=== PATIENT | male | born 1955 | race Caucasian/White ===

== ENCOUNTER 2025-08-06 03:16 | Inpatient (IN) | payer OTHER ==
[2025-08-06] VITALS (12 sets, daily range): BP systolic 111–145; BP diastolic 63–90; PULSE 87–110; RESP 15–26; TEMP 97.6–99.6; O2SAT 93–99
[~2025-08-06] VITALS: Ht 175.3 cm; Wt 98.7 kg
--- NOTE | 2025-08-06 03:43 | ED.PDOC ---
History of Present Illness HPI Comments 69 year old male presents to ER with complaints of flu-like symptoms x 4 days. Patient presents VIA EMS, reporting that she has been experiencing dry cough, congestion and body aches x 4 days.He rates his current pain a 7/10 and notes he's been taking Tylenol for his symptoms without relief. Patient presents to ER febrile at 103.5 F, present in wheelchair, alert and oriented x4, in moderate distress and reports + exposure to sick contacts at home. Patient also reports hx of "chronic shortness of breath x 1 year" that he states got worse x 1 day and was hypoxic at 90% on RA on EMS arrival with improvement to 95% on 3L NC. Denies chest pain, hemoptysis, dizziness, n/v, neck pain, abdominal pain, changes in urination/bm or any further symptoms/complaints Chief Complaint: Flu like Time Seen by MD: 03:26 Primary Care Provider: UNKNOWN Reviewed Notes: Nurses Notes, Medications, Allergies Information Source: Patient Mode of Arrival: Wheelchair Past Medical History PAST MEDICAL HISTORY: DM, HTN, PE Surgical History: Denies all surgeries Family History Family History: Unknown Social History Smoker: Non-Smoker Alcohol: Denies ETOH Use Drugs: Denies Drug Use Lives In: Home Constitutional: See HPI EENTM: See HPI Respiratory: See HPI Cardiovascular: No Symptoms Reported Gastrointestinal: No Symptoms Reported Genitourinary: No Symptoms Reported Neurological: No Symptoms Reported Musculoskeletal: No Symptoms Reported Integumentary: No Symptoms Reported Allergic/Immunocompromised: others (Denies) Hematologic/Lymphatic: No Symptoms Reported Endocrine: No Symptoms Reported Psychiatric: No symptoms Reported Physical Exam General Appearance: Moderate Distress, Obese HEENT: Normal ENT Inspection, PERRL/EOMI, Pharynx Normal, TMs Normal Neck: Full Range of Motion, Non-Tender, Normal Respiratory: Chest Non-Tender, Decreased Breath Sounds (Noted to bilateral upper lung ruiz), Lungs Clear, Respiratory Distress, Other (Patient on 3L NC) Cardiovascular: No Murmur, No Gallop, Tachycardia Breast Exam: Deferred Gastrointestinal: Non Tender, No Pulsatile Mass, Soft Genitalia: Deferred Pelvic: Deferred Rectal: Deferred Extremities: Normal capillary refill, Normal range of motion Neurologic: Alert, No Motor Deficits, Normal Affect, Normal Mood, No Sensory Deficits Cerebellar Function: Normal Reflexes: Normal Skin: Dry, Normal Color, Warm Peripheral Pulses: 3+ carotid (R), 3+ carotid (L), 3+ Radial (R), 3+ Radial (L), 3+ Brachial (R), 3+ Brachial (L) Lymphatic: No Adenopathy Was a procedure done? Was a procedure done?: No Sedation Sedation?: No EKG EKG : Pulse Rate (adult): 109 Cardiac Rhythm: ST Fever Differential Dx Differential Diagnosis: Pneumonia, Respiratory Failure, Sepsis, Pharyngitis, Other (COVID-19, [place], [place]) X-Ray, Labs, Meds, VS Vital Signs Date Time Temp Pulse Resp B/P (MAP) Pulse Ox O2 Delivery O2 Flow Rate FiO2 08/06/25 06:30 110 23 136/90 (105) 93 08/06/25 05:51 109 08/06/25 05:38 99.6 08/06/25 05:10 112 26 155/89 (111) 93 08/06/25 04:38 103.5 08/06/25 04:33 109 08/06/25 04:15 103.5 111 26 153/90 (111) 95 103.5 08/06/25 04:15 108 26 93 Nasal Cannula* 3 32 08/06/25 04:15 108 08/06/25 03:22 103.5 111 26 145/72 95 103.5 Lab Test 08/06/25 06:11 08/06/25 04:17 08/06/25 04:16 08/06/25 04:10 Range/Units Lactic Acid Level 1.2 2.4 *H 0.4-2.0 mmol/L Troponin I High Sensitivity 47 50 </=54 ng/L Influenza Type A Antigen Negative Negative Influenza Type B Antigen Negative Negative SARS-CoV-2 Antigen (Rapid) Negative NEGATIVE White Blood Count 8.1 4.4-10.8 10^3/uL Red Blood Count 6.15 H 4.5-5.90 10^6/uL Hemoglobin 18.3 H 13.5-17.5 g/dL Hematocrit 54.3 H 41.0-53.0 % Mean Corpuscular Volume 88.2 80.0-100.0 fL Mean Corpuscular Hemoglobin 29.8 28.0-32.0 pg Mean Corpuscular Hemoglobin Concent 33.7 32.0-36.0 g/dL Red Cell Distribution Width 13.8 11.8-14.3 % Platelet Count 200 140-450 10^3/uL Mean Platelet Volume 9.2 6.9-10.8 fL Neutrophils (%) (Auto) 72.6 37.0-80.0 % Lymphocytes (%) (Auto) 7.9 L 10.0-50.0 % Monocytes (%) (Auto) 18.1 H 0.0-12.0 % Eosinophils (%) (Auto) 1.1 0.0-7.0 % Basophils (%) (Auto) 0.3 0.0-2.0 % Neutrophils # (Auto) 5.9 1.6-8.6 10 ^3/uL Lymphocytes # (Auto) 0.6 0.4-5.4 10 ^3/uL Monocytes # (Auto) 1.5 H 0-1.3 10 ^3/uL Eosinophils # (Auto) 0.1 0-0.8 10 ^3/uL Basophils # (Auto) 0 0-0.2 10 ^3/uL Nucleated Red Blood Cells 0.3 % D-Dimer, Quantitative 1.07 H 0.0-0.49 mg/L FEU Sodium Level 139 136-145 mmol/L Potassium Level 5.1 3.5-5.1 mmol/L Chloride Level 104 98-107 mmol/L Carbon Dioxide Level 23 20-31 mmol/L Anion Gap 12 5-15 Blood Urea Nitrogen 11 9-23 mg/dL Creatinine 1.18 0.700-1.30 mg/dL Glomerular Filtration Rate Calc 68 >90 mL/min BUN/Creatinine Ratio 9.3 L 10.0-20.0 Serum Glucose 166 H 74-106 mg/dL Calcium Level 9.5 8.7-10.4 mg/dL Total Bilirubin 1.0 0.2-1.0 mg/dL Aspartate Amino Transferase (AST) 71 H 13-40 U/L Alanine Aminotransferase (ALT) 42 H 7-40 U/L Alkaline Phosphatase 67 46-116 U/L B-Type Natriuretic Peptide 194.02 0-100 pg/mL Total Protein 9.0 H 5.7-8.2 g/dL Albumin 5.1 H 3.2-4.8 g/dL Current Medications Medications (Trade) Dose Ordered Sig/Ruma Route Start Time Stop Time Status Last Admin Acetaminophen (Tylenol Tablet) 650 mg ONCE ONCE PO 08/06/25 03:30 08/06/25 03:31 DC 08/06/25 04:38 Sodium Chloride 1,000 ml @ 1,000 mls/hr Q1H ONCE IV 08/06/25 03:45 08/06/25 04:44 DC 08/06/25 04:38 Methylprednisolone Sodium Succinate (Solu Medrol) 125 mg ONCE ONCE IV 08/06/25 04:00 08/06/25 04:01 DC 08/06/25 04:38 Ceftriaxone Sodium 50 ml @ 100 mls/hr ONCE ONCE IV 08/06/25 04:00 08/06/25 04:29 DC 08/06/25 04:37 Sodium Chloride 1,000 ml @ 1,000 mls/hr Q1H ONCE IV 08/06/25 05:00 08/06/25 05:59 DC 08/06/25 05:17 Enoxaparin Sodium (Lovenox) 100 mg ONCE ONCE SC 08/06/25 05:45 08/06/25 05:46 DC 08/06/25 06:00 PATIENT: RASHI LEGGETT ACCT: [id number] UNIT: [id number] : 1955 LOC: ER ROOM / BED: / AGE / SEX: 69 / M ADM STATUS: REG ER SERVICE 6 ORDERING PHYSICIAN: ANNITA CHANCE PROCEDURE(s): CXR1 - CHEST XRAY 1 VIEW REASON: cough ORDER NUMBER(s): [id number], ACCESSION NUMBER(s): [id number] CHEST RADIOGRAPH Indication: cough Technique: Single frontal view of the chest was obtained COMPARISON: None FINDINGS: Lines and Tubes: None Lungs: Clear Pleura: No effusion. No pneumothorax. Cardiomediastinal contours: Unremarkable Bones: Unremarkable IMPRESSION: 1. No acute disease. ATED BY: NAPOLEON LYONS MD DICTATED DATE/TIME: 08/06/25445 SIGNED BY: NAPOLEON LYONS MD SIGNED DATE/TIME: 08/06/25445 CC: PATIENT: RASHI LEGGETT ACCT: [id number] UNIT: [id number] : 1955 LOC: ER ROOM / BED: / AGE / SEX: 69 / M ADM STATUS: REG ER SERVICE 6 ORDERING PHYSICIAN: ANNITA CHANCE PROCEDURE(s): CTACH - CT ANGIO CHEST CONTRAST REASON: shortness of breath, elevated d-dimer r/o PE ORDER NUMBER(s): [id number], ACCESSION NUMBER(s): [id number] CTA Chest with intravenous contrast INDICATION: Shortness of breath, elevated d-dimer r/o PE. COMPARISON: None TECHNIQUE: Multidetector spiral CTA of the chest was performed of the chest with 100 cc of omnipaque 300 intravenous contrast. PULMONARY ANGIOGRAPHY PROTOCOL was utilized using a bolus-tracking technique centered on the main pulmonary artery. Coronal and sagittal multiplanar and MIP reformats were performed. Radiation Dose : 1. Chest: CTDI volume is 25.92 mGy. Dose-length product is 1000.7 mGy*cm The dose indicators for CT are the volume Computed Tomography (CT) Dose Index (CTDIvol) and the Dose Length Product (DLP), and are measured in units of mGy and mGy-cm, respectively. These indicators are not patient dose, but values generated from the CT scanner acquisition factors. The report includes radiation exposure data for exposures received during this examination. FINDINGS: Pulmonary artery: There is a filling defect in the left pulmonary artery. Lower neck: Unremarkable thyroid. Lungs: No focal pulmonary consolidation or pulmonary nodule. Central airways: Patent. Pleura: No pneumothorax. No pleural effusions. Heart/Vascular Structures: The heart is normal in size. RV to LV ratio measures 1.1 No pericardial effusion. Thoracic aorta is normal in caliber. No aneurysm or dissection. Lymph Nodes: No mediastinal or hilar lymphadenopathy. Esophagus:Grossly unremarkable. Musculoskeletal: Unremarkable. Body wall: Unremarkable. Upper abdomen: Unremarkable. IMPRESSION: 1. Left lobar pulmonary embolism. Elevated RV to LV ratio concerning for right heart strain. ATED BY: VILMA CREWS MD DICTATED DATE/TIME: 08/06/25526 SIGNED BY: VILMA CREWS MD SIGNED DATE/TIME: 08/06/25526 CC: CBC ordered-hemoglobin 18.3 CMP ordered without any significant abnormalities D-dimer 1.07 reviewed Lactic acid reviewed - 2.4 Troponin reviewed- 50 BNP ordered PT/PTT ordered EKG reviewed Chest x-ray reviewed CT chest angio reviewed Swabs reviewed - negative Hep-Lock IV ordered NS 1 L IV ordered Rocephin g IV ordered Solu-Medrol 125 mg IV ordered Tylenol 650 mg p.o. ordered Patient started on Lovenox 100 mg SC Patient hemodynamically stable, denying any chest pain and saturating 95% on 3L NC Case discussed with Dr. Schneider who's agreeable with current plan of care/management Patient admitted to hospitalist for left lobar PE with possible right heart strain and need for continued anticoagulation/further evaluation Images Reviewed?: Images reviewed and evaluated by me Time of 1ST Reevaluation: 04:05 Reevaluation 1ST: N/A Patient Education/Counseling: Diagnosis, Treatment, Prognosis, Need For Follow Up Family Education/Counseling: No Family Present SEPSIS Sepsis Screen Date sepsis recognized/suspect: Aug 06, 2025 Time Sepsis recognized/suspect: 326 Recent Procedure: No On Antibiotic Therapy: No Respiratory Rate >20: Yes Heart Rate >90: Yes Temp<36 C (96.8 F) or >38.3 C: Yes SBP <90 or MAP <65 mmHG: No New Acute Mental Status Change: No Is the patient on CPAP, BIPAP,: No Physician Orders Blood Culture (08/06/25 03:32) Finger Cobbler (08/06/25 ) Blood Pressure (08/06/25 ) Pulse Oximetry (08/06/25 ) Chest Xray 1 View (08/06/25 03:37) Heplock Iv (08/06/25 ) Ct Angio Chest Contrast (08/06/25 04:47) Vital Signs Date Time Temp Pulse Resp B/P (MAP) Pulse Ox O2 Delivery O2 Flow Rate FiO2 08/06/25 06:30 110 23 136/90 (105) 93 08/06/25 05:51 109 08/06/25 05:38 99.6 08/06/25 05:10 112 26 155/89 (111) 93 08/06/25 04:38 103.5 08/06/25 04:33 109 08/06/25 04:15 103.5 111 26 153/90 (111) 95 103.5 08/06/25 04:15 108 26 93 Nasal Cannula* 3 32 08/06/25 04:15 108 08/06/25 03:22 103.5 111 26 145/72 95 103.5 Laboratory Tests Test 08/06/25 04:10 08/06/25 06:11 Lactic Acid Level 2.4 mmol/L (0.4-2.0) *H 1.2 mmol/L (0.4-2.0) White Blood Count 8.1 10^3/uL (4.4-10.8) Departure 1 Departure Time of Disposition: 04:54 Impression: Primary Impression: Pulmonary embolism Qualified Codes: I26.99 - Other pulmonary embolism without acute cor pulmonale Additional Impressions: Respiratory distress Lactic acidosis Elevated d-dimer Disposition: ADMITTED INPATIENT Condition: Critical Critical Care Note Critical Care Time?: No Stability Stability form required: No Heart Score Heart Score: Heart Score Response (Comments) Value History N/A 0 EKG N/A 0 Age N/A 0 Risk Factors N/A 0 Troponin N/A 0 Total 0 ANNITA CHANCE Aug 06, 2025 03:43
[2025-08-06 04:32] LABS: Hematocrit 54.3 % (41.0-53.0); Hemoglobin 18.3 g/dL (13.5-17.5); Mean Corpuscular Hemoglobin 29.8 pg (28.0-32.0); Mean Corpuscular Volume 88.2 fL (80.0-100.0); Nucleated Red Blood Cells % 0.3 %
[2025-08-06] MEDS: ACETAMINOPHEN 325 MG TAB PO ONE (04:38)
[2025-08-06] MEDS: methylPREDNISolone SOD SUCC 125 MG/2 ML VL IV ONE (04:38)
[2025-08-06] MEDS: SODIUM CHLORIDE 0.9% 1,000 ML IV ONE ×2 (04:38→05:17)
--- NOTE | 2025-08-06 04:48 | DVH ---
CHEST RADIOGRAPH Indication: cough Technique: Single frontal view of the chest was obtained COMPARISON: None FINDINGS: Lines and Tubes: None Lungs: Clear Pleura: No effusion. No pneumothorax. Cardiomediastinal contours: Unremarkable Bones: Unremarkable IMPRESSION: 1. No acute disease.
[2025-08-06 04:49] LABS: Alkaline Phosphatase 67 U/L (46-116); Anion Gap 12 (5-15); BUN/Creatinine Ratio 9.3 (10.0-20.0); Bilirubin, Total 1.0 mg/dL (0.2-1.0); Blood Urea Nitrogen 11 mg/dL (9-23); Calcium 9.5 mg/dL (8.7-10.4); Carbon Dioxide 23 mmol/L (20-31); Chloride 104 mmol/L (98-107); Sodium 139 mmol/L (136-145)
[2025-08-06 04:50] LABS: Lactic Acid w/Reflex 2.4 mmol/L (0.4-2.0)
[2025-08-06 04:51] LABS: Alanine Aminotransferase 42 U/L (7-40); Albumin 5.1 g/dL (3.2-4.8); Glucose 166 mg/dL (74-106); Potassium 5.1 mmol/L (3.5-5.1); Total Protein 9.0 g/dL (5.7-8.2)
[2025-08-06] MEDS: IOHEXOL 300 MG/ML 100ML BOTTLE IJ ONE (05:11)
[2025-08-06 05:13] LABS: COVID19 ANTIGEN SOFIA FIA NEGATIVE (NEGATIVE)
--- NOTE | 2025-08-06 05:25 | ECG ---
[facility] Test Date: 2025-08-06 Test Time: 04:33:43 Pat Name: RASHI LEGGETT Department: [facility] ED Patient ID: [facility]-[id number] Room: Gender: M Terminal Make Up Operator: TOM : 1955 Requested By: ANNITA CHANCE Order Number: [id number] Reading MD: Measurements Intervals [place] Rate: 109 P: -4 TX: 219 QRS: 173 QRSD: 92 T: -32 QT: 325 QTc: 438 Interpretive Statements Sinus tachycardia Prolonged TX interval Probable RVH w/ secondary repol abnormality Borderline ST elevation, lateral leads Please click the below link to view image of tracing.
--- NOTE | 2025-08-06 05:30 | DVH ---
CTA Chest with intravenous contrast INDICATION: Shortness of breath, elevated d-dimer r/o PE. COMPARISON: None TECHNIQUE: Multidetector spiral CTA of the chest was performed of the chest with 100 cc of omnipaque 300 intravenous contrast. PULMONARY ANGIOGRAPHY PROTOCOL was utilized using a bolus-tracking techniqu e centered on the main pulmonary artery. Coronal and sagittal multiplanar and MIP reformats were perf ormed. Radiation Dose : 1. Chest: CTDI volume is 25.92 mGy. Dose-length product is 1000.7 mGy*cm The dose indicators for CT are the volume Computed Tomography (CT) Dose Index (CTDIvol) and the Dose Length Product (DLP), and are measured in units of mGy and mGy-cm, respectively. These indicators are not patient dose, but values generated from the CT scanner acquisition factors. The report includes radiation exposure data for exposures received during this examination. FINDINGS: Pulmonary artery: There is a filling defect in the left pulmonary artery. Lower neck: Unremarkable thyroid. Lungs: No focal pulmonary consolidation or pulmonary nodule. Central airways: Patent. Pleura: No pneumothorax. No pleural effusions. Heart/Vascular Structures: The heart is normal in size. RV to LV ratio measures 1.1 No pericardial ef fusion. Thoracic aorta is normal in caliber. No aneurysm or dissection. Lymph Nodes: No mediastinal or hilar lymphadenopathy. Esophagus:Grossly unremarkable. Musculoskeletal: Unremarkable. Body wall: Unremarkable. Upper abdomen: Unremarkable. IMPRESSION: 1. Left lobar pulmonary embolism. Elevated RV to LV ratio concerning for right heart strain.
[2025-08-06] MEDS: ENOXAPARIN SOD 100 MG/1 ML SYRINGE SC ONE (06:00)
[2025-08-06] MEDS ORDERED: NITROGLYCERIN 0.4 MG SL TAB SL PRN (07:45)
[2025-08-06] MEDS ORDERED: ACETAMINOPHEN 325 MG TAB PO PRN (07:45)
[2025-08-06] MEDS ORDERED: HYDROcodone-ACET 5/325MG TAB PO PRN (07:45)
[2025-08-06] MEDS ORDERED: MORPHINE SULFATE INJ 2 MG/ml SYRG IV PRN (07:45)
[2025-08-06] MEDS ORDERED: ONDANSETRON HCL 4 MG/2 ML VIAL IV PRN (07:45)
[2025-08-06] MEDS ORDERED: DOCUSATE SOD 100 MG CAP PO PRN (07:45)
[2025-08-06] MEDS ORDERED: LISI-275 PO (07:49)
[2025-08-06] MEDS ORDERED: METF-370 PO (07:49)
[2025-08-06] MEDS ORDERED: INSLANTI SC (07:49)
[2025-08-06] MEDS ORDERED: DEXTROSE (50%) 50ML SYRG IV PRN (08:00)
[2025-08-06 08:30] LABS: INR 1.3 (0.9-1.15); Partial Thromboplastin Time 32.6 SEC (24.5-34.5); Prothrombin Time 13.4 sec (9.3-11.8)
--- NOTE | 2025-08-06 08:37 | DVHHP2 ---
History of Present Illness Reason for Visit: Shortness of breath History of Present Illness Rell Ortega is a 69-year-old male with past medical history of hypertension, diabetes, and hyperlipidemia who came to the hospital for shortness of breath. Patient states he has been experiencing shortness of breath for about 1 year. He sates over the weekend himself and his girlfriend became sick and his shortness of breath worsened prompting him to come to the hospital. Cardiovascular: HTN, hyperipidemia Endocrine: Diabetes Past Surgical History: None Smoke: No ALCOHOL: none Drugs: None Lives: with Family Domestic Violence: Neg Review of Systems Constitutional: No: Fever, Chills, Sweats, Weakness, Malaise, Other Eyes: No: Pain, Vision change, Conjunctivae inflammation, Eyelid inflammation, Other, Redness ENT: No: Ear pain, Ear discharge, Nose pain, Nose discharge, Nose congestion, Mouth pain, Mouth swelling, Throat pain, Throat swelling, Other Respiratory: Shortness of breath, SOB with excertion; No: Cough, Dry, Wheezing, Hemoptysis, Pleuritic Pain, Sputum, Wheezing, Other Cardiovascular: No: Chest Pain, Palpitations, Orthopnea, Paroxysmal Noc. Dysp irma, Edema, Lt Headedness, Other Gastrointestinal: No: Nausea, Vomiting, Abdominal Pain, Diarrhea, Constipation, Melena, Hematochezia, Other Genitourinary: No Dysuria, No Frequency, No Incontinence, No Hematuria, No Retention, No Other Musculoskeletal: No: other, neck pain, shoulder pain, arm pain, back pain, hand pain, leg pain, foot pain Skin: No: Rash, Lesions, Jaundice, Bruising, Other Neurological: No: Weakness, Numbness, Incoordination, Change in speech, Confusion, Seizures, Other Allergies: Coded Allergies: Penicillins (Verified Allergy, Severe, RASH, 09/10/15) Medications Current Medications Medications Dose Ordered Sig/Ruma Route Start Time Stop Time Status Last Admin Dose Admin Acetaminophen/ Hydrocodone Bitart 1 tab Q4HP PRN PO 08/06/25 07:45 UNV Ondansetron HCl 4 mg Q4HP PRN IV 08/06/25 07:45 UNV Docusate Sodium 100 mg BIDPRN PRN PO 08/06/25 07:45 UNV Acetaminophen 650 mg Q6HP PRN PO 08/06/25 07:45 UNV Nitroglycerin 0.4 mg Q5MINP PRN SL 08/06/25 07:45 UNV Morphine Sulfate 2 mg Q30M PRN IV 08/06/25 07:45 UNV Exam Vital Signs Vital Signs Date Time Temp Pulse Resp B/P (MAP) Pulse Ox O2 Delivery O2 Flow Rate FiO2 08/06/25 06:30 110 23 136/90 (105) 93 08/06/25 05:38 99.6 08/06/25 04:15 Nasal Cannula* 3 32 General Appearance: Alert, Oriented X3, Cooperative, moderate distress HEENT: Atraumatic, PERRLA Respiratory: Other (diminished breath sounds) Cardiovascular: Normal S1, Normal S2, Other (ST) Abdominal: Normal bowel sounds, Soft Extremities: No clubbing, No cyanosis, No edema, Normal pulses Skin: No rashes, No breakdown, No significant lesion Neuro: Normal gait, Normal speech, Strength at 5/5 X4 ext, Normal tone, Sensation intact Psych/Mental Status: Mental status NL, Mood NL Labs/Xrays Labs Test 08/06/25 06:11 08/06/25 04:17 08/06/25 04:16 08/06/25 04:10 Range/Units Lactic Acid Level 1.2 0.4-2.0 mmol/L Troponin I High Sensitivity 47 </=54 ng/L Influenza Type A Antigen Negative Negative Influenza Type B Antigen Negative Negative SARS-CoV-2 Antigen (Rapid) Negative NEGATIVE White Blood Count 8.1 4.4-10.8 10^3/uL Red Blood Count 6.15 H 4.5-5.90 10^6/uL Hemoglobin 18.3 H 13.5-17.5 g/dL Hematocrit 54.3 H 41.0-53.0 % Mean Corpuscular Volume 88.2 80.0-100.0 fL Mean Corpuscular Hemoglobin 29.8 28.0-32.0 pg Mean Corpuscular Hemoglobin Concent 33.7 32.0-36.0 g/dL Red Cell Distribution Width 13.8 11.8-14.3 % Platelet Count 200 140-450 10^3/uL Mean Platelet Volume 9.2 6.9-10.8 fL Neutrophils (%) (Auto) 72.6 37.0-80.0 % Lymphocytes (%) (Auto) 7.9 L 10.0-50.0 % Monocytes (%) (Auto) 18.1 H 0.0-12.0 % Eosinophils (%) (Auto) 1.1 0.0-7.0 % Basophils (%) (Auto) 0.3 0.0-2.0 % Neutrophils # (Auto) 5.9 1.6-8.6 10 ^3/uL Lymphocytes # (Auto) 0.6 0.4-5.4 10 ^3/uL Monocytes # (Auto) 1.5 H 0-1.3 10 ^3/uL Eosinophils # (Auto) 0.1 0-0.8 10 ^3/uL Basophils # (Auto) 0 0-0.2 10 ^3/uL Nucleated Red Blood Cells 0.3 % D-Dimer, Quantitative 1.07 H 0.0-0.49 mg/L FEU Sodium Level 139 136-145 mmol/L Potassium Level 5.1 3.5-5.1 mmol/L Chloride Level 104 98-107 mmol/L Carbon Dioxide Level 23 20-31 mmol/L Anion Gap 12 5-15 Blood Urea Nitrogen 11 9-23 mg/dL Creatinine 1.18 0.700-1.30 mg/dL Glomerular Filtration Rate Calc 68 >90 mL/min BUN/Creatinine Ratio 9.3 L 10.0-20.0 Serum Glucose 166 H 74-106 mg/dL Calcium Level 9.5 8.7-10.4 mg/dL Total Bilirubin 1.0 0.2-1.0 mg/dL Aspartate Amino Transferase (AST) 71 H 13-40 U/L Alanine Aminotransferase (ALT) 42 H 7-40 U/L Alkaline Phosphatase 67 46-116 U/L B-Type Natriuretic Peptide 194.02 0-100 pg/mL Total Protein 9.0 H 5.7-8.2 g/dL Albumin 5.1 H 3.2-4.8 g/dL CHEST RADIOGRAPH FINDINGS: Lines and Tubes: None Lungs: Clear Pleura: No effusion. No pneumothorax. Cardiomediastinal contours: Unremarkable Bones: Unremarkable IMPRESSION: 1. No acute disease. CTA Chest with intravenous contrast FINDINGS: Pulmonary artery: There is a filling defect in the left pulmonary artery. Lower neck: Unremarkable thyroid. Lungs: No focal pulmonary consolidation or pulmonary nodule. Central airways: Patent. Pleura: No pneumothorax. No pleural effusions. Heart/Vascular Structures: The heart is normal in size. RV to LV ratio measures 1.1 No pericardial effusion. Thoracic aorta is normal in caliber. No aneurysm or dissection. Lymph Nodes: No mediastinal or hilar lymphadenopathy. Esophagus:Grossly unremarkable. Musculoskeletal: Unremarkable. Body wall: Unremarkable. Upper abdomen: Unremarkable. IMPRESSION: 1. Left lobar pulmonary embolism. Elevated RV to LV ratio concerning for right heart strain. SEPSIS Sepsis Screen Date sepsis recognized/suspect: Aug 06, 2025 Time Sepsis recognized/suspect: 326 Recent Procedure: No On Antibiotic Therapy: No Respiratory Rate >20: Yes Heart Rate >90: Yes Temp<36 C (96.8 F) or >38.3 C: Yes SBP <90 or MAP <65 mmHG: No New Acute Mental Status Change: No Is the patient on CPAP, BIPAP,: No Physician Orders Blood Culture (08/06/25 03:32) Housemaid (08/06/25 ) Blood Pressure (08/06/25 ) Pulse Oximetry (08/06/25 ) Chest Xray 1 View (08/06/25 03:37) He[place]ock Iv (08/06/25 ) Ct Angio Chest Contrast (08/06/25 04:47) Troponin-I Hs (08/06/25 06:36) PTPTT (08/06/25 05:58) Admit (08/06/25 07:36) Code Status (08/06/25 07:36) Hydrocodone-Acet 5/325mg Tab ([place] (08/06/25 07:45) Ondansetron Hcl (Zofran) (08/06/25 07:45) Docusate Sodium Capsule (Colace Capsule) (08/06/25 07:45) Complete Blood Count (08/07/25 04:00) Comprehensive Metabolic Panel (08/07/25 04:00) Npo (Nothing By Mouth) Diet (08/06/25 Breakfast) Echo 2d Mode Cardiac Dop (08/06/25 07:36) Condition: Critical (08/06/25 07:36) Acetaminophen Tablet (Tylenol Tablet) (08/06/25 07:45) Nitroglycerin Sublingual (Ntrostat Subli (08/06/25 07:45) Morphine Sulfate Injection (08/06/25 07:45) Stat Ekg For Chest Pain (08/06/25 07:36) Notify Of Changes From Base (08/06/25 07:36) Manager Estate For 24 Hours (08/06/25 07:36) Emergency Dysrhythmia Protocol (08/06/25 07:36) Rhythm Strips Once Every Shift (08/06/25 07:36) Oxygen By Nasal Cannula (08/06/25 07:36) Vital Signs Date Time Temp Pulse Resp B/P (MAP) Pulse Ox O2 Delivery O2 Flow Rate FiO2 08/06/25 06:30 110 23 136/90 (105) 93 08/06/25 05:51 109 08/06/25 05:38 99.6 08/06/25 05:10 112 26 155/89 (111) 93 08/06/25 04:38 103.5 08/06/25 04:33 109 08/06/25 04:15 103.5 111 26 153/90 (111) 95 103.5 08/06/25 04:15 108 26 93 Nasal Cannula* 3 32 08/06/25 04:15 108 08/06/25 03:22 103.5 111 26 145/72 95 103.5 Laboratory Tests Test 08/06/25 04:10 08/06/25 06:11 Lactic Acid Level 2.4 mmol/L (0.4-2.0) *H 1.2 mmol/L (0.4-2.0) White Blood Count 8.1 10^3/uL (4.4-10.8) Medications Medications Dose Ordered Sig/Ruma Route Start Time Stop Time Status Last Admin Dose Admin Acetaminophen 650 mg ONCE ONCE PO 08/06/25 03:30 08/06/25 03:31 DC 08/06/25 04:38 650 MG Ceftriaxone Sodium 50 ml @ 100 mls/hr ONCE ONCE IV 08/06/25 04:00 08/06/25 04:29 DC 08/06/25 04:37 100 MLS/HR Enoxaparin Sodium 100 mg ONCE ONCE SC 08/06/25 05:45 08/06/25 05:46 DC 08/06/25 06:00 100 MG Methylprednisolone Sodium Succinate 125 mg ONCE ONCE IV 08/06/25 04:00 08/06/25 04:01 DC 08/06/25 04:38 125 MG Sodium Chloride 1,000 ml @ 1,000 mls/hr Q1H ONCE IV 08/06/25 03:45 08/06/25 04:44 DC 08/06/25 04:38 1,000 MLS/HR Sodium Chloride 1,000 ml @ 1,000 mls/hr Q1H ONCE IV 08/06/25 05:00 08/06/25 05:59 DC 08/06/25 05:17 1,000 MLS/HR Assessment/Plan Assessment/Plan Assessment: Pulmonary embolism, Acute hypoxic respiratory failure, Febrile, Lactic acidosis, Elevated D-Dimer, Hypertension, Diabetes, Plan: Admit to Tele, STAT ECHO, Cardiology consult, Lovenox BID, IV antibiotics, NPO, Supplemental oxygen as needed, Breathing treatments, IV steroids, Accu checks with sliding scale, Home medications reconciled, Plan discussed with: Patient, Other (girlfriend) My Orders Orders - DALTON PÉREZ Procedure Category Date Status Time Admit ADMIT 08/06/25 Transmitted 07:36 Code Status CODE 08/06/25 Transmitted 07:36 Hydrocodone-Acet PHA 08/06/25 Logged 5/325mg Tab ([place] 07:45 Ondansetron Hcl PHA 08/06/25 Logged (Zofran) 07:45 Docusate Sodium PHA 08/06/25 Logged Capsule (Colace 07:45 Complete Blood Count LAB 08/07/25 Verified 04:00 Comprehensive LAB 08/07/25 Verified Metabolic Panel 04:00 Npo (Nothing By DIET 08/06/25 Transmitted Mouth) Diet Breakfast Echo 2d Mode Cardiac US 08/06/25 Logged DOP 07:36 Condition: Critical [facility] 08/06/25 In Process 07:36 Acetaminophen Tablet PHA 08/06/25 Logged (Tylenol Tablet) 07:45 Nitroglycerin PHA 08/06/25 Logged Sublingual (Ntrostat 07:45 Morphine Sulfate PHA 08/06/25 Logged Injection 07:45 Stat Ekg For Chest [facility] 08/06/25 In Process Pain 07:36 Notify Of Changes [facility] 08/06/25 In Process From Base 07:36 Manager Estate For [facility] 08/06/25 In Process 24 Hours 07:36 Emergency Dysrhythmia [facility] 08/06/25 In Process Protocol 07:36 Rhythm Strips Once [facility] 08/06/25 In Process Every Shift 07:36 Oxygen By Nasal RT 08/06/25 Transmitted Cannula 07:36 Date of Service: Aug 06, 2025 Billing Provider: DALTON PÉREZ Common Visit Codes: [id number] INP/OBS CARE (HIGH) DALTON PÉREZ Aug 06, 2025 08:37
[2025-08-06 09:27] LABS: Base Excess -5.1 mmol/L (-2.0-3.0)
--- NOTE | 2025-08-06 09:32 | DVHINCON2 ---
Date Seen: Aug 06, 2025 Referring Physician MD Kristie Reason for Consultation PE History of Present Illness This is a 69-year-old man who presented to the emergency room via EMS with a chief complaint of flu-like symptoms for four days. The patient is somewhat a poor historian. Most of the information obtained from records which state the patient presented with a dry cough, chest congestion, myalgia, and an associated pyrexia up to 103.5 F. upon EMS arrival he was found with a oxygen saturation level of 90% on room air for which he was given supplemental oxygenation. Upon arrival to the emergency room he underwent a 12 lead electrocardiogram revealing a sinus tachycardia rhythm with a associated S1T3 pattern. CT angiogram of the chest revealed a left lower pulmonary embolism suggestive of right heart strain. He was medicated with therapeutic Lovenox. Significant medical history includes history of PE/right lower extremity DVT diagnosed a year ago on Eliquis therapy BID with the patient admitting he forgets to take at times, hypertensio n, dyslipidemia, insulin-dependent diabetes mellitus, and obesity. Past Medical History Past medical history reviewed. No other significant than mentioned above. Past Surgical History Past surgical history reviewed. No other significant than mentioned above. Family History Family history reviewed. Social History Denies the use of illicit drugs, alcohol, or tobacco use. Allergies: Coded Allergies: Penicillins (Verified Allergy, Severe, RASH, 09/10/15) Home Meds Reported Medications Lisinopril (Lisinopril) 5 Mg Tab, 5 MG PO DAILY, TAB 08/06/25 Insulin Glargine (Lantus) 100 Unit/Ml Inj, 20 UNIT SC HS, INJ 08/06/25 Metformin Hydrochloride (Metformin Hcl) 500 Mg Tab, 1 TAB PO BID, #60 TAB 3 Refills 08/06/25 Home Meds Home medications reviewed. Current Medications Current Medications Medications (Trade) Dose Ordered Sig/Ruma Route PRN Reason Start Time Stop Time Status Last Admin Acetaminophen/ Hydrocodone Bitart ([place] 5/325MG Tab) 1 tab Q4HP PRN PO MODERATE PAIN (4-6 PAIN SCALE) 08/06/25 07:45 Ondansetron HCl (Zofran) 4 mg Q4HP PRN IV NAUSEA / VOMITING 08/06/25 07:45 Docusate Sodium (Colace Capsule) 100 mg BIDPRN PRN PO FOR CONSTIPATION 08/06/25 07:45 Acetaminophen (Tylenol Tablet) 650 mg Q6HP PRN PO PAIN SCALE 1-3 OR TEMP>100.4 08/06/25 07:45 Nitroglycerin (Ntrostat Sublingual) 0.4 mg Q5MINP PRN SL FOR CHEST PAIN 08/06/25 07:45 Morphine Sulfate 2 mg Q30M PRN IV FOR CHEST PAIN 08/06/25 07:45 Diagnostic Test (Pha) (Accu-Chek Comfort Curve T) 1 strip Q6HR 08/06/25 12:00 Insulin Human Regular (InsuLIN R) Q6HR SC 08/06/25 12:00 Dextrose 50 ml UD PRN IV Blood Sugar LESS THAN 60 08/06/25 08:00 Enoxaparin Sodium (Lovenox) 100 mg Q12HR SC 08/06/25 22:00 Insulin Glargine (Lantus) 20 units HS SC 08/06/25 22:00 Methylprednisolone Sodium Succinate (Solu Medrol) 40 mg BID IV 08/06/25 10:00 Ipratropium [place] (Atrovent Medneb) 0.5 mg Q6HWA [facility] 08/06/25 12:00 Albuterol (Ventolin Medneb) 2.5 mg Q6HWA [facility] 08/06/25 12:00 Ceftriaxone Sodium 50 ml @ 100 mls/hr DAILY@09 IV 08/07/25 09:00 Review of Systems Constitutional: Flu-like symptoms Ears, Nose, & Throat: No symptom reported Eyes: No symptom reported Neurological: No symptoms reported Pulmonary/Respiratory: Chest congestion, nonproductive cough Cardiovascular: No symptom reported Gastrointestinal: No symptom reported Genitourinary: No symptom reported Musculoskeletal: No symptom reported Skin: No symptom reported Psychiatric: No symptom reported Endocrine: No symptom reported Hemotologic/Lymphatic: No symptom reported Vital Signs Vital Signs Date Time Temp Pulse Resp B/P (MAP) Pulse Ox O2 Delivery O2 Flow Rate FiO2 08/06/25 08:30 99.6 110 22 136/90 93 99.6 08/06/25 04:15 Nasal Cannula* 3 32 Physical Exam General Appearance: Uncooperative. Well developed. Obese. In no acute distress Head Exam: Normal inspection Neck Exam: Normal inspection. Non-tender. Normal alignment Pulmonary/Respiratory: Chest non-tender. Clear bilateral breath sounds. Tachypneic. O2 via NC Cardiovascular/Chest: Regular rate and rhythm. S1, S2. No murmurs. No JVD. Peripheral Pulses: 2+ Radial (R). 2+ Radial (L). 2+ Pedal (R). 2+ Pedal (L) Abdominal Exam: Normal bowel sounds. Soft. Nontender. No hepatospenomegaly. No masses Ankle Exam: Negative ankle edema Lower extremities: Positive lower extremity edema, non-pitting Neuro/Mental Status: A&O x3. Coherent but very poor historian. Somnolent Thoughts/Psych: Normal thought pattern. Belligerent Appearance: In no acute distress Skin Exam: Normal inspection. Normal color. Warm. Dry Labs/Diagnostic Data Labs Test 08/06/25 09:01 08/06/25 08:01 08/06/25 06:11 08/06/25 04:17 Range/Units Blood Gas Specimen Type Arterial Blood Gas Sample Site Right radial Blood Gas Patient Temperature 37.0 Arterial Blood Date Drawn [id number] Arterial Blood pH 7.352 7.350-7.450 Arterial Blood Partial Pressure CO2 36.1 35.0-48.0 mmHg Arterial Blood Partial Pressure O2 98.3 83.0-108.0 mmHg Arterial Blood HCO3 19.6 L 21.0-28.0 mmol/L Arterial Blood Oxygen Saturation 96.7 94.0-98.0 % Arterial Blood Base Excess -5.1 L -2.0-3.0 mmol/L Arterial Blood Oxyhemoglobin 95.1 94.0-98.0 % Arterial Blood Carboxyhemoglobin 1.1 0.5-1.5 % Arterial Blood Methemoglobin 0.6 0.0-1.5 % Edu Test Yes Blood Gas Total Hemoglobin 17.40 13.5-17.5 g/dL Blood Gas Liter Flow 3.00 Blood Gas Modality Nasal cannula FiO2 % 32.0 Prothrombin Time 13.4 H 9.3-11.8 sec Prothrombin Time INR 1.30 H 0.9-1.15 Activated Partial Thromboplast Time 32.6 24.5-34.5 SEC Troponin I High Sensitivity 60 *H </=54 ng/L Lactic Acid Level 1.2 0.4-2.0 mmol/L Influenza Type A Antigen Negative Negative Influenza Type B Antigen Negative Negative Test 08/06/25 04:16 08/06/25 04:10 Range/Units SARS-CoV-2 Antigen (Rapid) Negative NEGATIVE White Blood Count 8.1 4.4-10.8 10^3/uL Red Blood Count 6.15 H 4.5-5.90 10^6/uL Hemoglobin 18.3 H 13.5-17.5 g/dL Hematocrit 54.3 H 41.0-53.0 % Mean Corpuscular Volume 88.2 80.0-100.0 fL Mean Corpuscular Hemoglobin 29.8 28.0-32.0 pg Mean Corpuscular Hemoglobin Concent 33.7 32.0-36.0 g/dL Red Cell Distribution Width 13.8 11.8-14.3 % Platelet Count 200 140-450 10^3/uL Mean Platelet Volume 9.2 6.9-10.8 fL Neutrophils (%) (Auto) 72.6 37.0-80.0 % Lymphocytes (%) (Auto) 7.9 L 10.0-50.0 % Monocytes (%) (Auto) 18.1 H 0.0-12.0 % Eosinophils (%) (Auto) 1.1 0.0-7.0 % Basophils (%) (Auto) 0.3 0.0-2.0 % Neutrophils # (Auto) 5.9 1.6-8.6 10 ^3/uL Lymphocytes # (Auto) 0.6 0.4-5.4 10 ^3/uL Monocytes # (Auto) 1.5 H 0-1.3 10 ^3/uL Eosinophils # (Auto) 0.1 0-0.8 10 ^3/uL Basophils # (Auto) 0 0-0.2 10 ^3/uL Nucleated Red Blood Cells 0.3 % D-Dimer, Quantitative 1.07 H 0.0-0.49 mg/L FEU Sodium Level 139 136-145 mmol/L Potassium Level 5.1 3.5-5.1 mmol/L Chloride Level 104 98-107 mmol/L Carbon Dioxide Level 23 20-31 mmol/L Anion Gap 12 5-15 Blood Urea Nitrogen 11 9-23 mg/dL Creatinine 1.18 0.700-1.30 mg/dL Glomerular Filtration Rate Calc 68 >90 mL/min BUN/Creatinine Ratio 9.3 L 10.0-20.0 Serum Glucose 166 H 74-106 mg/dL Calcium Level 9.5 8.7-10.4 mg/dL Total Bilirubin 1.0 0.2-1.0 mg/dL Aspartate Amino Transferase (AST) 71 H 13-40 U/L Alanine Aminotransferase (ALT) 42 H 7-40 U/L Alkaline Phosphatase 67 46-116 U/L B-Type Natriuretic Peptide 194.02 0-100 pg/mL Total Protein 9.0 H 5.7-8.2 g/dL Albumin 5.1 H 3.2-4.8 g/dL Assessment Acute left lobar PE with RV strain Rule out lower extremity DVT NSTEMI Type II secondary to above Hx of PE/RLE DVT x 1 year ago (on Eliquis) Highly suspected for sepsis Hypertension Dyslipidemia Insulin-dependent diabetes mellitus Rule out acute intoxication Plan/Recommendation (Dr. Moore) * CT angio chest with contrast: Left lobar pulmonary emboli. Elevated RV to LV ratio concerning for right heart strain * Preliminary transthoracic echocardiogram: preserved LV function. RV strain/dilatation. TAPSE Score 2.5. RVSP 45 mmHg * Twelve lead electrocardiogram: Sinus tachycardia at 109 bpm with S1T3 pattern * Wells' criteria for pulmonary embolism: 9.0 points, high-risk group Plan: The patient with a PE presents with associated RV strain for which he will be referred to Radiology for mechanical pulmonary thrombectomy evaluation. Continue bilateral lower extremity DVT US. Continue therapeutic Lovenox as scheduled. Strongly counseled on medical compliance with Eliquis therapy given recent history of PE/DVT. Repeat transthoracic echocardiogram within three months. Follow-up with Pulmonology or Cardiology within 1-2 weeks post- discharge. Kindly re-consult if in need of further recommendations. Thank you for allowing us to participate in this patient's care. Critical care time: 50 minutes. This medical document was created using an electronic medical record system with voice recognition software and computerized dictation system. Although this document has been carefully reviewed, there might still be some phonetic and typographical errors. Occasional wrong-word or ``sound-alike substitutions may have occurred due to the inherent limitations of voice recognition software. These areas are purely typographical due to imperfections of the software programs and do not reflect any compromise in the patient's medical care. Please read the chart carefully and recognize, using context, where these substitutions have occurred. Plan discussed with: Patient, Other NYHA Physical activity limitations: NA Date of Service: Aug 06, 2025 Billing Provider: CAESAR LANTIGUA Cardiology Common Codes: [id number] CARE 30-74 MIN CAESAR LANTIGUA Aug 06, 2025 09:32
[2025-08-06] MEDS: methylPREDNISolone SOD SUCC 40 MG/ML VL IV SCH (11:13)
[2025-08-06] MEDS: ALBUTEROL SULF 2.5 MG/0.5ML(0.5%) NEB SOLN NEB SCH (11:15)
[2025-08-06] MEDS: IPRATROPIUM BROM 0.5 MG/2.5ML INH SOL NEB SCH (11:15)
--- NOTE | 2025-08-06 11:25 | DVH ---
US BiLat Lower DVT HISTORY: PE rule out DVT COMPARISON: VAS VENOUS LOWER EXTREM RIGHT on DOS: 08/08/24 TECHNIQUE: Duplex doppler evaluation of the deep venous system of the lower extremity from the common femoral veins, superficial femoral vein, great saphenous vein, deep femoral vein, popliteal vein, an d calf veins, including color doppler and spectral/pulsed waveform analysis, was performed. FINDINGS: Right: - Common femoral vein: Partially non compressible - Deep femoral vein: Compressible - Femoral vein: Partially non compressible - Popliteal vein: Compressible - Other: 5.9 x 3.2 x 1.2 cm popliteal fossa Givens cyst Left: - Common femoral vein: Compressible - Deep femoral vein: Compressible - Femoral vein: Compressible - Popliteal vein: Compressible - Other: 5.5 x 5.2 x 0.6 cm givens cyst. IMPRESSION: Partially non compressible right CFV, FV can be seen with chronic deep venous thrombosis.
[2025-08-06 11:36] LABS: Phencyclidine Screen, Urine Neg (NEGATIVE)
[2025-08-06 11:39] LABS: Amphetamine Screen, Urine Pos (NEGATIVE); Barbiturate Scree,Urine Neg (NEGATIVE); Benzodiazephine Screen, Urine Neg (NEGATIVE); Cannabinoid Screen, Urine Neg (NEGATIVE); Cocaine Screen, Urine Neg (NEGATIVE); Opiate Scree,Urine Neg (NEGATIVE)
[2025-08-06] MEDS: ACCU-CHEK COMFORT CURVE STRIP VI SCH (11:51)
[2025-08-06] MEDS: InsuLIN REG 1unit/0.01ml Soln (100units/ml) SC SCH (11:52)
[2025-08-06 15:00] LABS: Hepatitis B Surface Antigen Negative (Negative); Hepatitis C Antibody Negative (Negative)
[2025-08-06 21:15] LABS: Urine Protein, UAD Negative (Negative)
[2025-08-06] MEDS: ENOXAPARIN SOD 100 MG/1 ML SYRINGE SC SCH (21:23)
[2025-08-06] MEDS: INSULIN LANTUS (GLARGINE) 1 /0.01ml (100units/ml) SC SCH (21:43)
--- NOTE | 2025-08-06 21:57 | DVHSR ---
APPROVED REPORT EXAM: Two-dimensional and M-mode echocardiogram with Doppler and color Doppler. Blood Pressure: 136/90 mmHg INDICATION PE rule out RV strain RISK FACTORS Obesity: Height: 5'9, Weight: 225 DIMENSIONS LVDd3.4 (3.8-5.7cm)LA (2D) (1.9-4.0cm)Aortic Root4.1 (2.0-3.7cm) LVDs2.2 (2.5-4.0cm)LA (MM) (1.9-4.0cm)Aortic Cusp Exc0.7 (1.5-2.0cm) EF (%) 54.0 (55-70%)Rt. Atrium4.8 (1.9-4.0cm)Asc. Aorta4.2 cm IVSd1.3 (0.7-1.1cm)RV (D) (1.8-2.4cm) PWd1.1 (0.7-1.1cm) Mitral Valve MitralMitral Stenosis E wave0.61m/sMV Mean GR.mmHg A wave1.26m/sMV Peak GR.mmHg E/A ratio0.52D MVAcm2 DECEL [id number] 1/2 Tim[place] Aortic Valve Aortic ValveAortic Stenosis V10.97m/[place] Mean GR.12mmHg V22.17m/[place]ad Peak GR.19mmHg LVOT Diameter2.7 (1.8-2.4cm)Doppler AVA2.56cm2 Pulmonic Valve V21.00m/s Tricuspid Valve TR Velocity2.26m/s [id number] Other Information Technically limited study due to body habitus.patient position. 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
--- NOTE | 2025-08-06 23:27 | DVHINCON2 ---
Date Seen: Aug 06, 2025 Referring Physician MD Kristie Reason for Consultation PE History of Present Illness This is a 69-year-old male with a past medical history includes history of PE/right lower extremity DVT diagnosed a year ago on Eliquis therapy BID with the patient admitting he forgets to take at times, hypertension, dyslipidemia, insulin-dependent diabetes mellitus, and obesity who presented to the emergency room via EMS with a chief complaint of flu-like symptoms for four days. The patient is somewhat a poor historian. Most of the information obtained from records which state the patient presented with a dry cough, chest congestion, myalgia, and an associated pyrexia up to 103.5 F. Upon EMS arrival he was found with a oxygen saturation level of 90% on room air for which he was given suppl emental oxygenation. Upon arrival to the emergency room he underwent a 12 lead electrocardiogram revealing a sinus tachycardia rhythm with a associated S1T3 pattern. Troponin [address] angiogram of the chest revealed a left lower pulmonary embolism suggestive of right heart strain. He was medicated with therapeutic Lovenox. Patient was admitted to the hospital. I am asked to consult on this patient. Past Medical History Past medical history reviewed. No other significant than mentioned above. Past Surgical History Past surgical history reviewed. No other significant than mentioned above. Allergies: Coded Allergies: Penicillins (Verified Allergy, Severe, RASH, 09/10/15) Home Meds Reported Medications Lisinopril (Lisinopril) 5 Mg Tab, 5 MG PO DAILY, TAB 08/06/25 Insulin Glargine (Lantus) 100 Unit/Ml Inj, 20 UNIT SC HS, INJ 08/06/25 Metformin Hydrochloride (Metformin Hcl) 500 Mg Tab, 1 TAB PO BID, #60 TAB 3 Refills 08/06/25 Current Medications Current Medications Medications (Trade) Dose Ordered Sig/Ruma Route PRN Reason Start Time Stop Time Status Last Admin Acetaminophen/ Hydrocodone Bitart ([place] 5/325MG Tab) 1 tab Q4HP PRN PO MODERATE PAIN (4-6 PAIN SCALE) 08/06/25 07:45 Ondansetron HCl (Zofran) 4 mg Q4HP PRN IV NAUSEA / VOMITING 08/06/25 07:45 Docusate Sodium (Colace Capsule) 100 mg BIDPRN PRN PO FOR CONSTIPATION 08/06/25 07:45 Acetaminophen (Tylenol Tablet) 650 mg Q6HP PRN PO PAIN SCALE 1-3 OR TEMP>100.4 08/06/25 07:45 Nitroglycerin (Ntrostat Sublingual) 0.4 mg Q5MINP PRN SL FOR CHEST PAIN 08/06/25 07:45 Morphine Sulfate 2 mg Q30M PRN IV FOR CHEST PAIN 08/06/25 07:45 Diagnostic Test (Pha) (Accu-Chek Comfort Curve T) 1 strip Q6HR 08/06/25 12:00 08/06/25 11:51 Insulin Human Regular (InsuLIN R) Q6HR SC 08/06/25 12:00 Dextrose 50 ml UD PRN IV Blood Sugar LESS THAN 60 08/06/25 08:00 Enoxaparin Sodium (Lovenox) 100 mg Q12HR SC 08/06/25 22:00 Insulin Glargine (Lantus) 20 units HS SC 08/06/25 22:00 Methylprednisolone Sodium Succinate (Solu Medrol) 40 mg BID IV 08/06/25 10:00 08/06/25 11:13 Ipratropium [place] (Atrovent Medneb) 0.5 mg Q6HWA [facility] 08/06/25 12:00 08/06/25 11:15 Albuterol (Ventolin Medneb) 2.5 mg Q6HWA [facility] 08/06/25 12:00 08/06/25 11:15 Ceftriaxone Sodium 50 ml @ 100 mls/hr DAILY@09 IV 08/07/25 09:00 Review of Systems Constitutional: Flu-like symptoms Ears, Nose, & Throat: No symptom reported Eyes: No symptom reported Neurological: No symptoms reported Pulmonary/Respiratory: Chest congestion, nonproductive cough Cardiovascular: No symptom reported Gastrointestinal: No symptom reported Genitourinary: No symptom reported Musculoskeletal: No symptom reported Skin: No symptom reported Psychiatric: No symptom reported Endocrine: No symptom reported Hemotologic/Lymphatic: No symptom reported Vital Signs Vital Signs Date Time Temp Pulse Resp B/P (MAP) Pulse Ox O2 Delivery O2 Flow Rate FiO2 08/06/25 11:21 88 16 97 08/06/25 11:15 Nasal Cannula 3.0 08/06/25 11:15 32 08/06/25 10:00 97.6 111/63 (79) 97.6 Physical Exam GENERAL: Alert and oriented x 3. No acute distress. Obese. EYES: PERRL, EOMI. Anicteric. HENT: Moist mucous membranes. LUNGS: Clear to auscultation bilaterally. CARDIOVASCULAR: Regular rate and rhythm. ABDOMEN: Soft, nontender and nondistended. EXTREMITIES: BLE edema. NEUROLOGIC: No focal neurological deficits. SKIN: Warm, dry. Labs/Diagnostic Data Labs Test 08/06/25 13:05 08/06/25 11:35 08/06/25 11:09 08/06/25 10:51 Range/Units POC Glucose 175 H 70-106 mg/dl Hemoglobin A1c 8.0 H <5.7 % A1C Urine Opiates Screen Neg NEGATIVE Urine Fentanyl Screen Neg NEGATIVE Urine Barbiturates Screen Neg NEGATIVE Urine Phencyclidine Screen Neg NEGATIVE Urine Amphetamines Screen Pos NEGATIVE Urine Benzodiazepines Screen Neg NEGATIVE Urine Cocaine Screen Neg NEGATIVE Urine Cannabinoids Screen Neg NEGATIVE Test 08/06/25 09:01 08/06/25 08:01 08/06/25 06:11 08/06/25 04:17 Range/Units Blood Gas Specimen Type Arterial Blood Gas Sample Site Right radial Blood Gas Patient Temperature 37.0 Arterial Blood Date Drawn [id number] Arterial Blood pH 7.352 7.350-7.450 Arterial Blood Partial Pressure CO2 36.1 35.0-48.0 mmHg Arterial Blood Partial Pressure O2 98.3 83.0-108.0 mmHg Arterial Blood HCO3 19.6 L 21.0-28.0 mmol/L Arterial Blood Oxygen Saturation 96.7 94.0-98.0 % Arterial Blood Base Excess -5.1 L -2.0-3.0 mmol/L Arterial Blood Oxyhemoglobin 95.1 94.0-98.0 % Arterial Blood Carboxyhemoglobin 1.1 0.5-1.5 % Arterial Blood Methemoglobin 0.6 0.0-1.5 % Edu Test Yes Blood Gas Total Hemoglobin 17.40 13.5-17.5 g/dL Blood Gas Liter Flow 3.00 Blood Gas Modality Nasal cannula FiO2 % 32.0 Prothrombin Time 13.4 H 9.3-11.8 sec Prothrombin Time INR 1.30 H 0.9-1.15 Activated Partial Thromboplast Time 32.6 24.5-34.5 SEC Troponin I High Sensitivity 60 *H </=54 ng/L Lactic Acid Level 1.2 0.4-2.0 mmol/L Influenza Type A Antigen Negative Negative Influenza Type B Antigen Negative Negative Test 08/06/25 04:16 08/06/25 04:10 Range/Units SARS-CoV-2 Antigen (Rapid) Negative NEGATIVE White Blood Count 8.1 4.4-10.8 10^3/uL Red Blood Count 6.15 H 4.5-5.90 10^6/uL Hemoglobin 18.3 H 13.5-17.5 g/dL Hematocrit 54.3 H 41.0-53.0 % Mean Corpuscular Volume 88.2 80.0-100.0 fL Mean Corpuscular Hemoglobin 29.8 28.0-32.0 pg Mean Corpuscular Hemoglobin Concent 33.7 32.0-36.0 g/dL Red Cell Distribution Width 13.8 11.8-14.3 % Platelet Count 200 140-450 10^3/uL Mean Platelet Volume 9.2 6.9-10.8 fL Neutrophils (%) (Auto) 72.6 37.0-80.0 % Lymphocytes (%) (Auto) 7.9 L 10.0-50.0 % Monocytes (%) (Auto) 18.1 H 0.0-12.0 % Eosinophils (%) (Auto) 1.1 0.0-7.0 % Basophils (%) (Auto) 0.3 0.0-2.0 % Neutrophils # (Auto) 5.9 1.6-8.6 10 ^3/uL Lymphocytes # (Auto) 0.6 0.4-5.4 10 ^3/uL Monocytes # (Auto) 1.5 H 0-1.3 10 ^3/uL Eosinophils # (Auto) 0.1 0-0.8 10 ^3/uL Basophils # (Auto) 0 0-0.2 10 ^3/uL Nucleated Red Blood Cells 0.3 % D-Dimer, Quantitative 1.07 H 0.0-0.49 mg/L FEU Sodium Level 139 136-145 mmol/L Potassium Level 5.1 3.5-5.1 mmol/L Chloride Level 104 98-107 mmol/L Carbon Dioxide Level 23 20-31 mmol/L Anion Gap 12 5-15 Blood Urea Nitrogen 11 9-23 mg/dL Creatinine 1.18 0.700-1.30 mg/dL Glomerular Filtration Rate Calc 68 >90 mL/min BUN/Creatinine Ratio 9.3 L 10.0-20.0 Serum Glucose 166 H 74-106 mg/dL Calcium Level 9.5 8.7-10.4 mg/dL Total Bilirubin 1.0 0.2-1.0 mg/dL Aspartate Amino Transferase (AST) 71 H 13-40 U/L Alanine Aminotransferase (ALT) 42 H 7-40 U/L Alkaline Phosphatase 67 46-116 U/L B-Type Natriuretic Peptide 194.02 0-100 pg/mL Total Protein 9.0 H 5.7-8.2 g/dL Albumin 5.1 H 3.2-4.8 g/dL Assessment Acute left lobar PE with RV strain. Rule out lower extremity DVT. NSTEMI Type II secondary to above. Hx of PE/RLE DVT x 1 year ago (on Eliquis). Highly suspected for sepsis. Hypertension. Dyslipidemia. Insulin-dependent diabetes mellitus. Rule out acute intoxication. Plan/Recommendation I agree with your ongoing assessment and care of plan. Patient has been seen by Jen Du NP on my behalf, her and I discussed the plan with the patient. CT angio chest with contrast: Left lobar pulmonary emboli. Elevated RV to LV ratio concerning for right heart strain. Preliminary transthoracic echocardiogram: preserved LV function. RV str ain/dilatation. TAPSE Score 2.5. RVSP 45 mmHg. Twelve lead electrocardiogram: Sinus tachycardia at 109 bpm with S1T3 pattern. Wells' criteria for pulmonary embolism: 9.0 points, high-risk group. The patient with a PE presents with associated RV strain for which he will be referred to Radiology for mechanical pulmonary thrombectomy evaluation. Continue bilateral lower extremity DVT US. Continue therapeutic Lovenox as scheduled. Strongly counseled on medical compliance with Eliquis therapy given recent history of PE/DVT. Repeat transthoracic echocardiogram within three months. Follow-up with Pulmonology or Cardiology within 1-2 weeks post-discharge. Additional plan as per the hospital course. Plan discussed with: Patient NYHA Physical activity limitations: NA Date of Service: Aug 06, 2025 Billing Provider: HENRIQUE SANCHEZ MD Cardiology Common Codes: [id number] INP/OBS CARE (High), [id number] CARE 30-74 MIN HENRIQUE SANCHEZ MD Aug 06, 2025 13:49
[2025-08-07] VITALS (14 sets, daily range): BP systolic 103–131; BP diastolic 69–79; PULSE 77–98; RESP 18–20; TEMP 98–98.5; O2SAT 92–100
[2025-08-07 07:02] LABS: Hematocrit 48.1 % (41.0-53.0); Hemoglobin 16.3 g/dL (13.5-17.5); Mean Corpuscular Hemoglobin 29.7 pg (28.0-32.0); Mean Corpuscular Volume 87.7 fL (80.0-100.0); Nucleated Red Blood Cells % 0.1 %
[2025-08-07 07:18] LABS: Albumin 4.0 g/dL (3.2-4.8); Alkaline Phosphatase 49 U/L (46-116); Anion Gap 11 (5-15); BUN/Creatinine Ratio 21.2 (10.0-20.0); Blood Urea Nitrogen 22 mg/dL (9-23); Carbon Dioxide 22 mmol/L (20-31); Chloride 106 mmol/L (98-107); Magnesium 2.2 mg/dL (1.6-2.6); Potassium 4.1 mmol/L (3.5-5.1); Sodium 139 mmol/L (136-145); Total Protein 7.2 g/dL (5.7-8.2); Triglycerides 99 mg/dL (< 150)
[2025-08-07 07:19] LABS: Alanine Aminotransferase 41 U/L (7-40); Bilirubin, Total 0.3 mg/dL (0.2-1.0); Calcium 8.5 mg/dL (8.7-10.4); Cholesterol 90 mg/dL (< 200); Glucose 173 mg/dL (74-106); HDL Cholesterol 37 mg/dL (40-59)
[2025-08-07 07:25] LABS: INR 1.25 (0.9-1.15); Partial Thromboplastin Time 31.5 SEC (24.5-34.5); Prothrombin Time 13.0 sec (9.3-11.8)
--- NOTE | 2025-08-07 10:36 | DVHPN2 ---
Subjective Doing better No new SOB Changes from previous H/P or p: Changes Eyes: No Pain, No Vision change, No Conjunctivae inflammation, No Eyelid inflammation, No Other, No Redness ENT: No Ear pain, No Ear discharge, No Nose pain, No Nose discharge, No Nose congestion, No Mouth pain, No Mouth swelling, No Throat pain, No Throat swelling, No Other Cardiovascular: No Chest Pain, No Palpitations, No Orthopnea, No Paroxysmal Noc. Dyspnea, No Edema, No Lt Headedness, No Other Respiratory: No Cough, No Dry; Shortness of breath, SOB with excertion; No Wheezing, No Hemoptysis, No Pleuritic Pain, No Sputum, No Other Gastrointestinal: No Nausea, No Vomiting, No Abdominal Pain, No Diarrhea, No Constipation, No Melena, No Hematochezia, No Other Genitourinary: No Dysuria, No Frequency, No Incontinence, No Hematuria, No Retention, No Other Musculoskeletal: No other, No neck pain, No shoulder pain, No arm pain, No back pain, No hand pain, No leg pain, No foot pain Skin: No Rash, No Lesions, No Jaundice, No Bruising, No Other Objective Vitals Vital Signs Date Time Temp Pulse Resp B/P (MAP) Pulse Ox O2 Delivery O2 Flow Rate FiO2 08/07/25 09:00 98.0 89 19 105/69 (81) 93 98.0 08/07/25 07:22 Nasal Cannula* 3 32 Intake/Output Intake and Output 08/07/25 07:00 Intake Total 575 ml Output Total 1150 ml Balance -575 ml Intake Oral 575 ml Output Urine Total 1150 ml General Appearance: Alert, Oriented X3, Cooperative, No acute distress Lungs: Clear to auscultation, Normal air movement Cardiovascular: Regular rate, Normal S1 Abdomen: Normal bowel sounds, Soft, No tenderness Extremities: No edema Medications Current Medications Medications Dose Ordered Sig/Ruma Route Start Time Stop Time Status Last Admin Dose Admin Acetaminophen/ Hydrocodone Bitart 1 tab Q4HP PRN PO 08/06/25 07:45 Ondansetron HCl 4 mg Q4HP PRN IV 08/06/25 07:45 Docusate Sodium 100 mg BIDPRN PRN PO 08/06/25 07:45 Acetaminophen 650 mg Q6HP PRN PO 08/06/25 07:45 Nitroglycerin 0.4 mg Q5MINP PRN SL 08/06/25 07:45 Morphine Sulfate 2 mg Q30M PRN IV 08/06/25 07:45 Diagnostic Test (Pha) 1 strip Q6HR 08/06/25 12:00 08/07/25 05:06 1 STRIP Insulin Human Regular Q6HR SC 08/06/25 12:00 08/07/25 00:02 8 UNITS Dextrose 50 ml UD PRN IV 08/06/25 08:00 Enoxaparin Sodium 100 mg Q12HR SC 08/06/25 22:00 08/06/25 21:23 100 MG Insulin Glargine 20 units HS SC 08/06/25 22:00 08/06/25 21:43 20 UNITS Methylprednisolone Sodium Succinate 40 mg BID IV 08/06/25 10:00 08/07/25 08:52 40 MG Ipratropium [place] 0.5 mg Q6HWA NEB 08/06/25 12:00 08/07/25 07:22 0.5 MG Albuterol 2.5 mg Q6HWA [facility] 08/06/25 12:00 08/07/25 07:22 2.5 MG Ceftriaxone Sodium 50 ml @ 100 mls/hr DAILY@09 IV 08/07/25 09:00 08/07/25 08:51 100 MLS/HR Laboratory Results Laboratory Tests 08/07/25 06:11 Chemistry Test 08/07/25 06:11 Albumin 4.0 g/dL (3.2-4.8) Calcium Level 8.5 mg/dL (8.7-10.4) L Magnesium Level 2.2 mg/dL (1.6-2.6) Total Protein 7.2 g/dL (5.7-8.2) Coagulation Test 08/07/25 06:11 Prothrombin Time 13.0 sec (9.3-11.8) H Prothrombin Time INR 1.25 (0.9-1.15) H Activated Partial Thromboplast Time 31.5 SEC (24.5-34.5) Lipid panel Test 08/07/25 06:11 Cholesterol Level 90 mg/dL (< 200) HDL Cholesterol 37 mg/dL (40-59) L Triglycerides Level 99 mg/dL (< 150) LFT Test 08/07/25 06:11 Alanine Aminotransferase (ALT) 41 U/L (7-40) H Alkaline Phosphatase 49 U/L (46-116) Aspartate Amino Transferase (AST) 73 U/L (13-40) H Total Bilirubin 0.3 mg/dL (0.2-1.0) HgA1c, TSH Test 08/06/25 11:09 08/07/25 06:11 Hemoglobin A1c 8.0 % A1C (<5.7) H Thyroid Stimulating Hormone (TSH) 1.01 uIU/mL (0.55-4.78) Urinalysis Test 08/06/25 14:32 Urine Color Light-yellow (Yellow) Urine Clarity Clear (Clear) Urine pH 5.5 (5.0-9.0) Urine Specific [place] 1.040 (1.001-1.035) Urine Protein Negative (Negative) Urine Ketones 2+ (Negative) H Urine Blood Negative /uL (Negative) Urine Nitrite Negative (Negative) Urine Bilirubin Negative (Negative) Urine Urobilinogen Normal mg/dL (Negative) Urine Leukocyte Esterase Negative /uL (Negative) Urine RBC None seen /hpf (0 - 3) Urine Microscopic WBC < 1 /HPF (0-3) Urine Squamous Epithelial Cells None seen /hpf (<5) Urine Bacteria None seen /hpf (None Seen) Urine Glucose 4+ mg/dL (Normal) H Microbiology Microbiology Date/Time Source Procedure Growth Status 08/06/25 04:10 Blood Blood Culture - Preliminary NO GROWTH AFTER 24 HOURS OF INCUBATION. 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 De Los Santos from Interventional Radiology, he does not recommend intervention since the PE and DVT look chronic Continue anticoagulation with Lovenox Increase Lantus to 20 units twice a day IV steroids Med neb treatments as needed Oxygen as needed Switch Lovenox to Eliquis in 1-2 days Monitor closely Plan discussed with: Patient My Orders Orders - VICKY WAGNER MD Procedure Category Date Status Time Cardiac DIET 08/06/25 Transmitted Diet-2gna,Lofat,Lochol Dinner Npo After Midnight WILLAM 08/06/25 In Process 19:25 Date of Service: Aug 07, 2025 Billing Provider: VICKY WAGNER MD Common Visit Codes: NOT BILLABLE VICKY WAGNER MD Aug 07, 2025 10:36
[2025-08-07] MEDS ORDERED: IPRATROPIUM BROM 0.5 MG/2.5ML INH SOL NEB SCH (11:30)
[2025-08-07] MEDS: ACCU-CHEK COMFORT CURVE STRIP VI SCH (11:54)
[2025-08-07] MEDS: INSULIN LANTUS (GLARGINE) 1 /0.01ml (100units/ml) SC ONE (11:59)
[2025-08-07] MEDS: IPRATROPIUM BROM 0.5 MG/2.5ML INH SOL NEB SCH (12:15)
[2025-08-07] MEDS: INSULIN LANTUS (GLARGINE) 1 /0.01ml (100units/ml) SC SCH (21:28)
[2025-08-08] VITALS (11 sets, daily range): BP systolic 120–138; BP diastolic 80–89; PULSE 70–93; RESP 16–19; TEMP 97.5–98.4; O2SAT 88–99
--- NOTE | 2025-08-08 00:04 | DVHPN2 ---
Progress Note - Dictate Date Seen: Aug 07, 2025 Medical Necessity Reason Pt with a Central, PICC or Fol: No Subjective Patient was seen and evaluated in follow up. Patient is on 3 LPM NC. Patient is complaining of a cough.WBC 12, CA 8.5, AST 73, ALT 41. Telemetry reviewed. vital signs Vital Sign Date Time Temp Pulse Resp B/P (MAP) Pulse Ox O2 Delivery O2 Flow Rate FiO2 08/07/25 12:21 86 20 99 08/07/25 12:15 Room Air 0.0 08/07/25 12:15 21 08/07/25 12:15 98.1 103/72 (82) 98.1 Total Intake and Output 08/06/25 08/06/25 08/07/25 15:00 23:00 07:00 Intake Total 0 ml 575 ml Output Total 650 ml 500 ml Balance -650 ml 75 ml medications Current Medications Medications Dose Ordered Sig/Ruma Route Start Time Stop Time Status Last Admin Dose Admin Acetaminophen/ Hydrocodone Bitart 1 tab Q4HP PRN PO 08/06/25 07:45 Ondansetron HCl 4 mg Q4HP PRN IV 08/06/25 07:45 Docusate Sodium 100 mg BIDPRN PRN PO 08/06/25 07:45 Acetaminophen 650 mg Q6HP PRN PO 08/06/25 07:45 Nitroglycerin 0.4 mg Q5MINP PRN SL 08/06/25 07:45 Morphine Sulfate 2 mg Q30M PRN IV 08/06/25 07:45 Insulin Human Regular Q6HR SC 08/06/25 12:00 08/07/25 12:03 3 UNITS Dextrose 50 ml UD PRN IV 08/06/25 08:00 Enoxaparin Sodium 100 mg Q12HR SC 08/06/25 22:00 08/07/25 11:53 100 MG Methylprednisolone Sodium Succinate 40 mg BID IV 08/06/25 10:00 08/07/25 08:52 40 MG Albuterol 2.5 mg Q6HWA NEB 08/06/25 12:00 08/07/25 12:15 2.5 MG Ceftriaxone Sodium 50 ml @ 100 mls/hr DAILY@09 IV 08/07/25 09:00 08/07/25 08:51 100 MLS/HR Insulin Glargine 20 units Q12H SC 08/07/25 22:00 Diagnostic Test (Pha) 1 strip ACHS 08/07/25 11:30 08/07/25 11:54 1 STRIP Ipratropium [place] 0.5 mg Q6HWA NEB 08/07/25 12:00 08/07/25 12:15 0.5 MG objective GENERAL: Alert and oriented x 3. No acute distress. Obese. EYES: PERRL, EOMI. Anicteric. HENT: Moist mucous membranes. LUNGS: Clear to auscultation bilaterally. CARDIOVASCULAR: Regular rate and rhythm. ABDOMEN: Soft, nontender and nondistended. EXTREMITIES: BLE edema. NEUROLOGIC: No focal neurological deficits. SKIN: Warm, dry. laboratory and microbiology Laboratory Tests 08/07/25 06:11 Test 08/07/25 06:11 Range/Units Serum Glucose 173 H 74-106 mg/dL Problem List Acute left lobar PE with RV strain. Rule out lower extremity DVT. NSTEMI Type II secondary to above. Hx of PE/RLE DVT x 1 year ago (on Eliquis). Highly suspected for sepsis. Hypertension. Dyslipidemia. Insulin-dependent diabetes mellitus. Rule out acute intoxication. Assessment/Plan Continued all current supportive medical care. Nitro SL. IV antibiotics as ordered. DVT prophylactics. Nebulized breathing treatments. [place] and Morphine for pain management. Additional plan as per the hospital course. Plan discussed with: Patient HENRIQUE SANCHEZ MD Aug 07, 2025 16:04
[2025-08-08] MEDS ORDERED: APIX5TAB PO (09:57)
[2025-08-08] MEDS ORDERED: METH4PAK PO (09:57)
[2025-08-08] MEDS: APIXABAN 5 MG TAB PO SCH (10:02)
--- NOTE | 2025-08-09 11:05 | DVHDS2 ---
Discharge Summary Date of Admission Aug 06, 2025 at 07:36 Date of Discharge: Aug 08, 2025 Labs/Diagnostic Data: Laboratory Results Test 08/08/25 05:02 08/07/25 06:11 08/06/25 14:32 08/06/25 13:05 POC Glucose 245 mg/dl (70-106) White Blood Count 12.0 10^3/uL (4.4-10.8) Red Blood Count 5.49 10^6/uL (4.5-5.90) Hemoglobin 16.3 g/dL (13.5-17.5) Hematocrit 48.1 % (41.0-53.0) Mean Corpuscular Volume 87.7 fL (80.0-100.0) Mean Corpuscular Hemoglobin 29.7 pg (28.0-32.0) Mean Corpuscular Hemoglobin Concent 33.9 g/dL (32.0-36.0) Red Cell Distribution Width 13.6 % (11.8-14.3) Platelet Count 190 10^3/uL (140-450) Mean Platelet Volume 9.5 fL (6.9-10.8) Neutrophils (%) (Auto) 83.5 % (37.0-80.0) Lymphocytes (%) (Auto) 5.6 % (10.0-50.0) Monocytes (%) (Auto) 10.8 % (0.0-12.0) Eosinophils (%) (Auto) 0.0 % (0.0-7.0) Basophils (%) (Auto) 0.1 % (0.0-2.0) Neutrophils # (Auto) 10.0 10 ^3/uL (1.6-8.6) Lymphocytes # (Auto) 0.7 10 ^3/uL (0.4-5.4) Monocytes # (Auto) 1.3 10 ^3/uL (0-1.3) Eosinophils # (Auto) 0 10 ^3/uL (0-0.8) Basophils # (Auto) 0 10 ^3/uL (0-0.2) Nucleated Red Blood Cells 0.1 % Prothrombin Time 13.0 sec (9.3-11.8) Prothrombin Time INR 1.25 (0.9-1.15) Activated Partial Thromboplast Time 31.5 SEC (24.5-34.5) Sodium Level 139 mmol/L (136-145) Potassium Level 4.1 mmol/L (3.5-5.1) Chloride Level 106 mmol/L (98-107) Carbon Dioxide Level 22 mmol/L (20-31) Anion Gap 11 (5-15) Blood Urea Nitrogen 22 mg/dL (9-23) Creatinine 1.04 mg/dL (0.700-1.30) Glomerular Filtration Rate Calc 79 mL/min (>90) BUN/Creatinine Ratio 21.2 (10.0-20.0) Serum Glucose 173 mg/dL (74-106) Calcium Level 8.5 mg/dL (8.7-10.4) Magnesium Level 2.2 mg/dL (1.6-2.6) Total Bilirubin 0.3 mg/dL (0.2-1.0) Aspartate Amino Transferase (AST) 73 U/L (13-40) Alanine Aminotransferase (ALT) 41 U/L (7-40) Alkaline Phosphatase 49 U/L (46-116) Total Protein 7.2 g/dL (5.7-8.2) Albumin 4.0 g/dL (3.2-4.8) Triglycerides Level 99 mg/dL (< 150) Cholesterol Level 90 mg/dL (< 200) LDL Cholesterol 41 mg/dL (< 100) HDL Cholesterol 37 mg/dL (40-59) Thyroid Stimulating Hormone (TSH) 1.01 uIU/mL (0.55-4.78) Urine Color Light-yellow (Yellow) Urine Clarity Clear (Clear) Urine pH 5.5 (5.0-9.0) Urine Specific [place] 1.040 (1.001-1.035) Urine Protein Negative (Negative) Urine Ketones 2+ (Negative) Urine Blood Negative /uL (Negative) Urine Nitrite Negative (Negative) Urine Bilirubin Negative (Negative) Urine Urobilinogen Normal mg/dL (Negative) Urine Leukocyte Esterase Negative /uL (Negative) Urine RBC None seen /hpf (0 - 3) Urine Microscopic WBC < 1 /HPF (0-3) Urine Squamous Epithelial Cells None seen /hpf (<5) Urine Bacteria None seen /hpf (None Seen) Urine Glucose 4+ mg/dL (Normal) Plasma/Serum Blood Alcohol < 3.0 mg/dL (<10) Test 08/06/25 11:09 08/06/25 10:51 08/06/25 09:01 08/06/25 08:01 Hemoglobin A1c 8.0 % A1C (<5.7) Urine Opiates Screen Neg (NEGATIVE) Urine Fentanyl Screen Neg (NEGATIVE) Urine Barbiturates Screen Neg (NEGATIVE) Urine Phencyclidine Screen Neg (NEGATIVE) Urine Amphetamines Screen Pos (NEGATIVE) Urine Benzodiazepines Screen Neg (NEGATIVE) Urine Cocaine Screen Neg (NEGATIVE) Urine Cannabinoids Screen Neg (NEGATIVE) Blood Gas Specimen Type Arterial Blood Gas Sample Site Right radial Blood Gas Patient Temperature 37.0 Arterial Blood Date Drawn [id number] Arterial Blood pH 7.352 (7.350-7.450) Arterial Blood Partial Pressure CO2 36.1 mmHg (35.0-48.0) Arterial Blood Partial Pressure O2 98.3 mmHg (83.0-108.0) Arterial Blood HCO3 19.6 mmol/L (21.0-28.0) Arterial Blood Oxygen Saturation 96.7 % (94.0-98.0) Arterial Blood Base Excess -5.1 mmol/L (-2.0-3.0) Arterial Blood Oxyhemoglobin 95.1 % (94.0-98.0) Arterial Blood Carboxyhemoglobin 1.1 % (0.5-1.5) Arterial Blood Methemoglobin 0.6 % (0.0-1.5) Edu Test Yes Blood Gas Total Hemoglobin 17.40 g/dL (13.5-17.5) Blood Gas Liter Flow 3.00 Blood Gas Modality Nasal cannula FiO2 % 32.0 Troponin I High Sensitivity 60 ng/L (</=54) Hepatitis B Surface Antigen Negative (Negative) Hepatitis C Antibody Negative (Negative) Test 08/06/25 06:11 08/06/25 04:17 08/06/25 04:16 08/06/25 04:10 Lactic Acid Level 1.2 mmol/L (0.4-2.0) Influenza Type A Antigen Negative (Negative) Influenza Type B Antigen Negative (Negative) SARS-CoV-2 Antigen (Rapid) Negative (NEGATIVE) D-Dimer, Quantitative 1.07 mg/L FEU (0.0-0.49) B-Type Natriuretic Peptide 194.02 pg/mL (0-100) Other Laboratory Tests 08/07/25 06:11 Brief Hx & Hospital Course: Diagnoses: Acute PE, chronic DVT RLE, chronic NSTEMI type 2 secondary to the above History of PE and DVT for 1 year on Eliquis Hypertension Mixed hyperlipidemia Type 2 diabetes COPD 69-year-old male was admitted for shortness of breaths Evaluation showed persistent PE and DVT which he had for about 10 months now Cardiac consultation was obtained Echocardiogram showed evidence of right heart strain Interventional Radiology was consulted to see if he is a candidate for thrombectomy however Dr. De Los Santos recommended against it since these clots were chronic The patient was taking Eliquis at home He was given Lovenox here and now we switched him back to Eliquis He is stable Discharged home back on Eliquis 5 mg twice a day Follow up with his primary care physician Condition at Discharge: Stable Final Diagnosis/Problems List Acute PE, chronic DVT RLE, chronic NSTEMI type 2 secondary to the above History of PE and DVT for 1 year on Eliquis Hypertension Mixed hyperlipidemia Type 2 diabetes COPD Discharge Disposition: Home SNF Discharge Will this Physician continue t: No Discharge Instruct/Medications Scheduled Insulin Glargine (Lantus), 20 UNIT SC HS, (Reported) Lisinopril (Lisinopril), 5 MG PO DAILY, (Reported) Metformin Hydrochloride (Metformin Hcl), 1 TAB PO BID, (Reported) Discharge Statement: "Patient was advised to return to the ER or call 911 if any headaches, dizziness, shortness of breath, chest pain, abdominal pain, bleeding, fevers, or worsening of medical condition. Patient was counseled about treatment plan, medications, possible side effects, patientverbalized understanding. All questions were answered to the best of my ability. This discharge took greater then 30 minutes in planning, reviewing documentation, counseling the patient, and discussing with other team members." ASSESSMENT ASSESSMENT Assessment Date of Service: Aug 08, 2025 Billing Provider: VICKY WAGNER MD Common Visit Codes: NOT BILLABLE VICKY WAGNER MD Aug 08, 2025 09:55
--- NOTE | 2025-08-09 11:30 | DVHPN2 ---
Progress Note - Dictate Date Seen: Aug 08, 2025 Medical Necessity Reason Pt with a Central, PICC or Fol: No Subjective Patient was seen and evaluated in follow up. Patient has no new complaints at this time. Patient denies any cardiac symptoms. Patient is cardiac stable for discharge. Telemetry reviewed. vital signs Vital Sign Date Time Temp Pulse Resp B/P (MAP) Pulse Ox O2 Delivery O2 Flow Rate FiO2 08/08/25 08:50 97.8 84 17 138/88 (105) 94 97.8 08/08/25 08:00 Room Air* 0 21 Total Intake and Output 08/07/25 08/07/25 08/08/25 15:00 23:00 07:00 Intake Total 236 ml 800 ml Output Total 650 ml 500 ml Balance -414 ml 300 ml medications Current Medications Medications Dose Ordered Sig/Ruma Route Start Time Stop Time Status Last Admin Dose Admin Acetaminophen/ Hydrocodone Bitart 1 tab Q4HP PRN PO 08/06/25 07:45 Ondansetron HCl 4 mg Q4HP PRN IV 08/06/25 07:45 Docusate Sodium 100 mg BIDPRN PRN PO 08/06/25 07:45 Acetaminophen 650 mg Q6HP PRN PO 08/06/25 07:45 Nitroglycerin 0.4 mg Q5MINP PRN SL 08/06/25 07:45 Morphine Sulfate 2 mg Q30M PRN IV 08/06/25 07:45 Insulin Human Regular Q6HR SC 08/06/25 12:00 08/08/25 05:08 4 UNITS Dextrose 50 ml UD PRN IV 08/06/25 08:00 Methylprednisolone Sodium Succinate 40 mg BID IV 08/06/25 10:00 08/08/25 08:29 40 MG Albuterol 2.5 mg Q6HWA NEB 08/06/25 12:00 08/08/25 06:28 2.5 MG Ceftriaxone Sodium 50 ml @ 100 mls/hr DAILY@09 IV 08/07/25 09:00 08/08/25 08:29 100 MLS/HR Insulin Glargine 20 units Q12H SC 08/07/25 22:00 08/08/25 10:04 20 UNITS Diagnostic Test (Pha) 1 strip ACHS 08/07/25 11:30 08/08/25 05:08 1 STRIP Ipratropium [place] 0.5 mg Q6HWA NEB 08/07/25 12:00 08/08/25 06:30 0.5 MG Apixaban 5 mg BID PO 08/08/25 10:00 08/08/25 10:02 5 MG objective GENERAL: Alert and oriented x 3. No acute distress. Obese. EYES: PERRL, EOMI. Anicteric. HENT: Moist mucous membranes. LUNGS: Clear to auscultation bilaterally. CARDIOVASCULAR: Regular rate and rhythm. ABDOMEN: Soft, nontender and nondistended. EXTREMITIES: BLE edema. NEUROLOGIC: No focal neurological deficits. SKIN: Warm, dry. laboratory and microbiology Laboratory Tests 08/07/25 06:11 Test 08/07/25 06:11 Range/Units Serum Glucose 173 H 74-106 mg/dL Problem List Acute left lobar PE with RV strain. Rule out lower extremity DVT. NSTEMI Type II secondary to above. Hx of PE/RLE DVT x 1 year ago (on Eliquis). Highly suspected for sepsis. Hypertension. Dyslipidemia. Insulin-dependent diabetes mellitus. Rule out acute intoxication. Assessment/Plan Continued all current supportive medical care. Eliquis. Nitro SL. IV antibiotics as ordered. DVT prophylactics. Morphine and T[place]atin for pain management. Additional plan as per the hospital course. Plan discussed with: Patient HENRIQUE SANCHEZ MD Aug 08, 2025 11:50
== END 2025-08-08 13:52 | disposition home or self-care (01) | DRG 175 ==
LOC: EDBD 03:16 → ER 03:16 → EDSEX 03:16 → OVERFLOW 07:36 → TELE-WESTW 09:43
PROVIDERS: ADMIT Internal Medicine Geriatric Medicine; ATTEND Internal Medicine Geriatric Medicine
DX: I26.99 Other pulmonary embolism without acute cor pulmonale (principal); I21.A1 Myocardial infarction type 2; J96.01 Acute respiratory failure with hypoxia; E87.20 Acidosis, unspecified; I82.721 Chronic embolism and thrombosis of deep veins of right upper extremity; Z20.822 Contact with and (suspected) exposure to COVID-19; E11.9 Type 2 diabetes mellitus without complications; E78.5 Hyperlipidemia, unspecified; E66.9 Obesity, unspecified; I10 Essential (primary) hypertension; J44.9 Chronic obstructive pulmonary disease, unspecified; E78.2 Mixed hyperlipidemia; Z88.0 Allergy status to penicillin; Z79.4 Long term (current) use of insulin; Z79.01 Long term (current) use of anticoagulants; Z79.899 Other long term (current) drug therapy
CPT/HCPCS: 36415; 36600; 71045; 71275; 80053; 80061; 80307; 80320; 81001; 82805; 82962; 83036; 83605; 83735; 83880; 84443; 84484; 85025; 85379; 85610; 85730; 86803; 87040; 87340; 87426; 87804; 93005; 93306; 93970; 94640; 96365; 96372; G0378; J1815